=== PATIENT | male | born 1985 | race Caucasian/White ===

== ENCOUNTER 2022-09-25 20:52 | Inpatient (IN) | payer MEDICARE, MEDICAID ==
[~2022-09-25] VITALS: Ht 185.4 cm; Wt 151.0 kg
[2022-09-25] MEDS ORDERED: NITROGLYCERIN OINT 1GM/INCH UDPKT TD ONE (21:30)
[2022-09-25] MEDS ORDERED: ACETAMINOPHEN 325MG TABLET PO ONE (21:30)
[2022-09-25 23:14] LABS: BASOPHILS % 0.6 % (0.0-2.0); EOSINOPHILS % 2.8 % (0.0-5.0); HEMATOCRIT. 44.2 % (42.0-52.0); HEMOGLOBIN. 14.5 g/dL (14.0-18.0); MEAN CORPUSCULAR HEMOGLOBIN 26.6 pg (28.0-32.0); MEAN CORPUSCULAR VOLUME 80.8 fL (80.0-94.0); MEAN PLATELET VOLUME 7.9 fl (7.4-10.4); MONOCYTES % 8.7 % (2.0-8.0); NEUTROPHILS % 65.9 % (40.0-76.0); PLATELET 275 x1000/uL (130-400); RED BLOOD CELL COUNT 5.47 mill/uL (4.7-6.1); RED CELL DISTRIBUTION WIDTH 17.9 % (11.6-14.6)
[2022-09-25 23:18] LABS: CHLORIDE 103 mEq/L (98-107)
[2022-09-25 23:21] LABS: PROTHROMBIN TIME 10.9 sec (9.6-11.0)
[2022-09-26] MEDS ORDERED: ACETAMINOPHEN 325MG TABLET PO PRN (07:00)
[2022-09-26] MEDS ORDERED: DOCUSATE SODIUM 100MG CAPSULE PO PRN (07:00)
[2022-09-26] MEDS ORDERED: MAGNESIUM/ALUMINUM HYDROXIDE/SIMETHICONE 30ML UDC PO PRN (07:00)
[2022-09-26] MEDS ORDERED: GUAIFENESIN 200MG/10ML SUGAR FREE UDC PO PRN (07:00)
[2022-09-26] MEDS ORDERED: CLONIDINE 0.1MG TABLET PO PRN (07:00)
[2022-09-26] MEDS ORDERED: ONDANSETRON HCL 4MG/2ML INJ IV PRN (07:00)
[2022-09-26] MEDS ORDERED: NALOXONE HCL 0.4MG/ML VIAL IV PRN (07:15)
[2022-09-26] MEDS ORDERED: ENOXAPARIN 40MG/0.4ML SYR SUBCUT SCH (07:15)
[2022-09-26] MEDS: AMLODIPINE 10MG TABLET PO SCH (09:12)
[2022-09-26 11:00] VITALS: BP 154/90
[2022-09-26] MEDS ORDERED: DEXTROSE 50% WATER 50ML SYRINGE IV PRN (11:30)
[2022-09-26 12:00] VITALS: BP 154/90
[2022-09-26] MEDS: BLOOD SUGAR DIAGNOSTIC STRIP TEST SCH ×3 (12:09→20:08)
[2022-09-26] MEDS: INSULIN LISPRO 100 UNITS/ML SUBCUT SCH ×3 (12:18→21:00)
[2022-09-26] MEDS ORDERED: APIX2.5T PO (13:59)
[2022-09-26] MEDS ORDERED: MOM PO (13:59)
[2022-09-26] MEDS ORDERED: BENZ1LOZ73 MT (13:59)
[2022-09-26] MEDS ORDERED: INSU100V37 SQ (13:59)
[2022-09-26] MEDS ORDERED: GABA-532 PO (13:59)
[2022-09-26] MEDS ORDERED: ONDA4SOL PO (13:59)
[2022-09-26] MEDS ORDERED: GUAN1TAB28 PO (13:59)
[2022-09-26] MEDS ORDERED: BISA10SU62 RC (13:59)
[2022-09-26] MEDS ORDERED: SEMA0.25 SQ (13:59)
[2022-09-26] MEDS ORDERED: ALBU90AE INH (13:59)
[2022-09-26] MEDS ORDERED: ATOR20TA PO (13:59)
[2022-09-26] MEDS ORDERED: BUPR100T13 PO (13:59)
[2022-09-26] MEDS ORDERED: IBUP-2030 PO (13:59)
[2022-09-26] MEDS ORDERED: TEMA15CA PO (14:41)
[2022-09-26] MEDS ORDERED: TOPUD PO (14:41)
[2022-09-26] MEDS ORDERED: PROM6.254 PO (14:41)
[2022-09-26 16:00] VITALS: BP 130/79
[2022-09-26] MEDS: GABAPENTIN 300MG CAPSULE PO SCH (17:41)
[2022-09-26] MEDS: APIXABAN 2.5 MG TABLET PO SCH (17:41)
[2022-09-26 20:00] VITALS: BP 109/62
[2022-09-26 20:40] LABS: *AMPHETAMINES SCREEN URINE NEGATIVE (NEGATIVE); *BARBITURATES SCREEN URINE NEGATIVE (NEGATIVE); *BENZODIAZEPINES SCREEN URINE NEGATIVE (NEGATIVE); *COCAINE SCREEN URINE NEGATIVE (NEGATIVE); CANNABINOID URINE SCREEN NEGATIVE (NEGATIVE); METHADONE URINE SCREEN NEGATIVE (NEGATIVE); OPIATES URINE SCREEN NEGATIVE (NEGATIVE); PHENCYCLIDINE URINE SCREEN NEGATIVE (NEGATIVE)
[2022-09-26] MEDS ORDERED: TAMSULOSIN HCL 0.4MG SR CAPSULE PO SCH (21:00)
[2022-09-26] MEDS ORDERED: ATORVASTATIN CALCIUM 20MG TABLET PO SCH ×2 (21:00)
[2022-09-26] MEDS: ATORVASTATIN CALCIUM 20MG TABLET PO SCH (21:40)
[2022-09-27 04:00] VITALS: BP_SYST 140; BP_SYST 157; BP_DIAS 41; BP_DIAS 93
[2022-09-27] MEDS: BLOOD SUGAR DIAGNOSTIC STRIP TEST SCH ×4 (05:04→20:51)
[2022-09-27] MEDS: INSULIN LISPRO 100 UNITS/ML SUBCUT SCH ×4 (06:15→20:50)
[2022-09-27 07:23] LABS: BASOPHILS % 0.3 % (0.0-2.0); EOSINOPHILS % 1.1 % (0.0-5.0); HEMATOCRIT. 42.5 % (42.0-52.0); HEMOGLOBIN. 14.2 g/dL (14.0-18.0); LYMPHOCYTES % 15.9 % (20.0-50.0); MEAN CORPUSCULAR HEMOGLOBIN 27.4 pg (28.0-32.0); MEAN CORPUSCULAR VOLUME 82.1 fL (80.0-94.0); MEAN PLATELET VOLUME 8.2 fl (7.4-10.4); MONOCYTES % 8.3 % (2.0-8.0); NEUTROPHILS % 74.4 % (40.0-76.0); PLATELET 310 x1000/uL (130-400); RED BLOOD CELL COUNT 5.18 mill/uL (4.7-6.1)
[2022-09-27 07:24] LABS: CHLORIDE 102 mEq/L (98-107)
[2022-09-27 07:35] LABS: HDL CHOLESTEROL 29 mg/dL (40-59); LDL CHOLESTEROL 135 mg/dL (5-100)
[2022-09-27 08:00] VITALS: BP 115/64
[2022-09-27] MEDS: GABAPENTIN 300MG CAPSULE PO SCH ×2 (08:44→17:47)
[2022-09-27] MEDS: AMLODIPINE 10MG TABLET PO SCH (08:44)
[2022-09-27] MEDS: APIXABAN 2.5 MG TABLET PO SCH ×2 (08:44→17:47)
[2022-09-27] MEDS: PANTOPRAZOLE 40MG DR TABLET PO SCH (08:44)
[2022-09-27 12:00] VITALS: BP 139/85
[2022-09-27 16:00] VITALS: BP 113/83
[2022-09-27 20:00] VITALS: BP 103/69
[2022-09-27] MEDS: ATORVASTATIN CALCIUM 20MG TABLET PO SCH (20:49)
[2022-09-28] VITALS: BP 123/66
[2022-09-28 04:00] VITALS: BP 109/68
[2022-09-28] MEDS: PANTOPRAZOLE 40MG DR TABLET PO SCH (06:50)
[2022-09-28] MEDS: BLOOD SUGAR DIAGNOSTIC STRIP TEST SCH ×4 (06:51→21:00)
[2022-09-28] MEDS: INSULIN LISPRO 100 UNITS/ML SUBCUT SCH ×4 (07:14→21:00)
[2022-09-28 07:44] VITALS: BP 142/78
[2022-09-28] MEDS: GABAPENTIN 300MG CAPSULE PO SCH ×2 (08:00→17:00)
[2022-09-28] MEDS: AMLODIPINE 10MG TABLET PO SCH (08:01)
[2022-09-28] MEDS: APIXABAN 2.5 MG TABLET PO SCH ×2 (08:01→17:00)
[2022-09-28 14:10] VITALS: BP 138/72
[2022-09-28 20:00] VITALS: BP 111/73
[2022-09-28] MEDS: TRAMADOL 50MG TABLET PO PRN (21:20)
[2022-09-28] MEDS: ATORVASTATIN CALCIUM 20MG TABLET PO SCH (21:21)
[2022-09-29] VITALS: BP 129/71
[2022-09-29] MEDS: MORPHINE SULFATE 15MG TABLET SR PO SCH ×2 (00:07→09:02)
[2022-09-29 04:00] VITALS: BP 168/102
[2022-09-29] MEDS: TRAMADOL 50MG TABLET PO PRN (04:34)
[2022-09-29] MEDS: BLOOD SUGAR DIAGNOSTIC STRIP TEST SCH (06:18)
[2022-09-29] MEDS: INSULIN LISPRO 100 UNITS/ML SUBCUT SCH (06:18)
[2022-09-29] MEDS ORDERED: FAMOTIDINE 20MG TABLET PO SCH (06:45)
[2022-09-29 08:00] VITALS: BP 147/67
[2022-09-29] MEDS: APIXABAN 2.5 MG TABLET PO SCH (08:57)
[2022-09-29] MEDS: GABAPENTIN 300MG CAPSULE PO SCH (08:57)
[2022-09-29] MEDS: AMLODIPINE 10MG TABLET PO SCH (09:02)
[2022-09-29 14:00] VITALS: BP 100/55
== END 2022-09-29 14:14 | DRG 554 ==
LOC: ER 20:52 → MICUSO 23:44 → 7WST 09-26 11:02 → UNDODISIN 09-27 18:01 → 5WST 09-28 15:50
PROVIDERS: ADMIT Hospitalist; ATTEND Hospitalist
DX: M87.812 Other osteonecrosis, left shoulder (principal); Z68.41 Body mass index [BMI] 40.0-44.9, adult; J44.9 Chronic obstructive pulmonary disease, unspecified; I11.0 Hypertensive heart disease with heart failure; E78.5 Hyperlipidemia, unspecified; M87.822 Other osteonecrosis, left humerus; Z20.822 Contact with and (suspected) exposure to COVID-19; Z66 Do not resuscitate; F20.9 Schizophrenia, unspecified; E11.65 Type 2 diabetes mellitus with hyperglycemia; E66.01 Morbid (severe) obesity due to excess calories; E11.42 Type 2 diabetes mellitus with diabetic polyneuropathy; G89.4 Chronic pain syndrome; I50.9 Heart failure, unspecified; Z87.891 Personal history of nicotine dependence; Z79.01 Long term (current) use of anticoagulants; Z79.52 Long term (current) use of systemic steroids; Z88.2 Allergy status to sulfonamides; Z79.899 Other long term (current) drug therapy; T38.0X5A Adverse effect of glucocorticoids and synthetic analogues, initial encounter; G47.30 Sleep apnea, unspecified; F10.21 Alcohol dependence, in remission
CPT/HCPCS: 36415; 71045; 73030; 80053; 80061; 80305; 82962; 83036; 83880; 84484; 85025; 87426; 93306; 93970; 97162; 97166; 99285; J1650; J1815

== ENCOUNTER 2023-02-17 18:52 | Emergency (ER) | payer MEDICARE, MEDICAID ==
[~2023-02-17] VITALS: Ht 185.4 cm; Wt 150.0 kg
[~2023-02-17 18:52] MED LIST: ALBU90AE INH; APIX2.5T PO; ATOR20TA PO; BENZ1LOZ73 MT; BISA10SU62 RC; BUPR100T13 PO; GABA-532 PO; GUAN1TAB28 PO; IBUP-2030 PO; INSU100V37 SQ; MOM PO; ONDA4SOL PO; PROM6.2525 PO; SEMA0.25 SQ; TEMA15CA PO; TOPUD PO
[2023-02-17 19:01] VITALS: BP 126/36; PULSE 129; RESP 16; TEMP 101.1; O2SAT 94
[2023-02-17] MEDS ORDERED: IBUPROFEN 600MG TABLET PO ONE (19:30)
[2023-02-17] MEDS ORDERED: ACETAMINOPHEN 325MG TABLET PO ONE (19:30)
[2023-02-18] MEDS ORDERED: ALBU6.7H3 INH (16:37)
[2023-02-18] MEDS ORDERED: GUAI600T26 MT (16:37)
== END 2023-02-17 20:50 | disposition left against medical advice (07) ==
LOC: ER 18:52
DX: R06.02 Shortness of breath (principal); E11.9 Type 2 diabetes mellitus without complications; I11.0 Hypertensive heart disease with heart failure; I50.9 Heart failure, unspecified; Z53.21 Procedure and treatment not carried out due to patient leaving prior to being seen by health care provider; Z88.2 Allergy status to sulfonamides; Z88.8 Allergy status to other drugs, medicaments and biological substances; Z79.899 Other long term (current) drug therapy; Z86.59 Personal history of other mental and behavioral disorders
CPT/HCPCS: 99283

== ENCOUNTER 2025-05-26 19:50 | Emergency (ER) | payer MEDICARE, MEDICAID ==
[~2025-05-26] VITALS: Ht 182.9 cm; Wt 159.0 kg
[~2025-05-26 19:50] MED LIST changes: +ALBU6.7H3 INH; +GABA-1180 PO; -GABA-532 PO; +GUAI600T26 MT; -INSU100V37 SQ; +INSU100V43 SQ; -PROM6.2525 PO; +PROM6.2527 PO
[2025-05-26 19:54] VITALS: O2SAT 96
[2025-05-26 21:10] LABS: BASOPHILS % 0.9 % (0.0-2.0); EOSINOPHILS % 2.6 % (0.0-5.0); HEMATOCRIT. 44.5 % (42.0-52.0); HEMOGLOBIN. 14.3 g/dL (14.0-18.0); LYMPHOCYTES % 26.0 % (20.0-50.0); MEAN PLATELET VOLUME 8.7 fl (7.4-10.4); MONOCYTES % 8.8 % (2.0-8.0); NEUTROPHILS % 61.7 % (40.0-76.0); PLATELET 186 x1000/uL (130-400); RED BLOOD CELL COUNT 5.09 mill/uL (4.7-6.1); RED CELL DISTRIBUTION WIDTH 16.7 % (11.6-14.6)
[2025-05-26 21:29] LABS: CREATININE 0.9 mg/dL (0.6-1.3); UREA NITROGEN BLOOD 13 mg/dL (9-23)
[2025-05-26 23:19] LABS: *AMPHETAMINES SCREEN URINE NEGATIVE (NEGATIVE); *BARBITURATES SCREEN URINE NEGATIVE (NEGATIVE); *BENZODIAZEPINES SCREEN URINE NEGATIVE (NEGATIVE); *COCAINE SCREEN URINE NEGATIVE (NEGATIVE); CANNABINOID URINE SCREEN NEGATIVE (NEGATIVE); ECSTASY MDMA SCREEN URINE NEGATIVE (NEGATIVE); METHADONE URINE SCREEN NEGATIVE (NEGATIVE); OPIATES URINE SCREEN NEGATIVE (NEGATIVE); PHENCYCLIDINE URINE SCREEN NEGATIVE (NEGATIVE)
[2025-05-26 23:27] LABS: CLARITY URINE CLEAR (CLEAR); COLOR URINE YELLOW (YELLOW); GLUCOSE URINE NEGATIVE (NEGATIVE); KETONES URINE NEGATIVE (NEGATIVE); LEUKOCYTE ESTERASE URINE NEGATIVE (NEGATIVE); NITRITE URINE NEGATIVE (NEGATIVE); OCCULT BLOOD URINE NEGATIVE (NEGATIVE); PH URINE 6.5 (4.5-8.0); PROTEIN URINE NEGATIVE (NEGATIVE); SPECIFIC GRAVITY URINE 1.017 (1.005-1.030); UROBILINOGEN URINE 1.0 E.U./dL (0.2-1.0)
[2025-05-27] MEDS: IBUPROFEN 800MG TABLET PO ONE (01:30)
[2025-05-27] MEDS: OLANZAPINE 5MG TABLET ODT PO ONE (01:30)
[2025-05-27 08:58] VITALS: BP 145/75; PULSE 76; RESP 18; TEMP 36.7; O2SAT 96
== END 2025-05-27 09:48 ==
LOC: ER 19:50
DX: R45.851 Suicidal ideations (principal); F41.9 Anxiety disorder, unspecified; F20.9 Schizophrenia, unspecified; J44.9 Chronic obstructive pulmonary disease, unspecified; I50.9 Heart failure, unspecified; E11.9 Type 2 diabetes mellitus without complications; I11.0 Hypertensive heart disease with heart failure; Z79.899 Other long term (current) drug therapy; Z88.2 Allergy status to sulfonamides; Z20.822 Contact with and (suspected) exposure to COVID-19
CPT/HCPCS: 36415; 80048; 80305; 80307; 80320; 80329; 81003; 85025; 87426; 99285; G0480